=== PATIENT | male | born 1985 | race Caucasian/White ===

== ENCOUNTER 2024-08-22 05:11 | Emergency (ER) | payer BC ==
[~2024-08-22] VITALS: Ht 165.1 cm; Wt 81.0 kg
[2024-08-22 05:34] VITALS: O2SAT 98
[2024-08-22 05:47] LABS: BASOPHILS % 0.4 % (0.0-2.0); EOSINOPHILS % 1.5 % (0.0-5.0); HEMATOCRIT. 50.8 % (42.0-52.0); HEMOGLOBIN. 17.6 g/dL (14.0-18.0); LYMPHOCYTES % 9.7 % (20.0-50.0); MEAN CORPUSCULAR HEMOGLOBIN 28.7 pg (28.0-32.0); MEAN CORPUSCULAR HGB CONC 34.6 g/dL (31.0-37.0); MEAN PLATELET VOLUME 10.1 fl (7.4-10.4); MONOCYTES % 8.1 % (2.0-8.0); NEUTROPHILS % 80.3 % (40.0-76.0); PLATELET 133 x1000/uL (130-400); RED BLOOD CELL COUNT 6.12 mill/uL (4.7-6.1); RED CELL DISTRIBUTION WIDTH 13.2 % (11.6-14.6); WHITE BLOOD COUNT 8.7 x1000/uL (4.5-11.0)
[2024-08-22 06:12] LABS: CHLORIDE 96 mEq/L (98-107); POTASSIUM 4.5 mEq/L (3.5-5.1); SODIUM 137 mEq/L (136-145)
[2024-08-22 06:13] LABS: CALCIUM 10.1 mg/dL (8.7-10.4); CARBON DIOXIDE 33 mEq/L (21-32)
[2024-08-22 06:18] LABS: CREATININE 1.2 mg/dL (0.6-1.3); GLUCOSE 364 mg/dL (70-105); UREA NITROGEN BLOOD 12 mg/dL (9-23)
[2024-08-22 06:20] LABS: ALANINE AMINOTRANSFERASE 59 IU/L (10-49); ALBUMIN 4.4 g/dL (3.2-4.8); ASPARTATE AMINOTRANSFERASE 36 IU/L (<34); BILIRUBIN DIRECT 0.4 mg/dL (<=3.0); BILIRUBIN TOTAL 1.5 mg/dL (0.1-1.0)
[2024-08-22 06:21] LABS: PROTEIN TOTAL 7.2 g/dL (6.0-8.3)
[2024-08-22] MEDS: DICYCLOMINE 10 MG/5 ML ORAL SYR PO STA (06:57)
[2024-08-22] MEDS: MAGNESIUM/ALUMINUM HYDROXIDE/SIMETHICONE 30ML UDC PO STA (06:57)
[2024-08-22] MEDS: KETOROLAC 30MG/ML VIAL IV STA (06:57)
[2024-08-22] MEDS: ONDANSETRON HCL 4MG/2ML INJ IV STA (06:57)
[2024-08-22] MEDS: SODIUM CHLORIDE 0.9% 1,000 ML IV ONE (07:00)
[2024-08-22] MEDS: DICYCLOMINE HCL 10MG CAPSULE PO NR (07:15)
[2024-08-22 08:18] VITALS: BP 133/79; PULSE 89; RESP 18; TEMP 36.9; O2SAT 98
[2024-08-22] MEDS ORDERED: TOPUD PO (08:38)
[2024-08-22] MEDS ORDERED: ONDA4TAB50 PO (08:38)
== END 2024-08-22 08:24 | disposition home or self-care (01) ==
LOC: ER 05:11
DX: K52.9 Noninfective gastroenteritis and colitis, unspecified (principal); Z90.49 Acquired absence of other specified parts of digestive tract
CPT/HCPCS: 99284; 96374; 96361; 96375; 80076; 80048; 83690; 85025; 36415; J1885; J2405; J7030